=== PATIENT | male | born 1970 | race Hispanic/Latino ===

== ENCOUNTER 2017-06-18 05:31 | Emergency (ER) | payer MEDICAID ==
[2017-06-18 06:28] LABS: BASO % 0.2 % (0.0-2.0); EOS # 0.2 K/uL (0.0-0.7); EOS % 2.5 % (0.0-4.0); HEMOGLOBIN 15.2 g/dL (12.0-18.0); LYMPH # 3.5 K/uL (1.0-4.3); LYMPH % 45.2 % (20.0-40.0); MEAN CELL VOLUME 95.2 fl (80.0-94.0); MEAN CORPUSCULAR HEMOGLOBIN 32.6 pg (27.0-31.0); MEAN CORPUSCULAR HGB CONC 34.3 g/dL (33.0-37.0); MONO # 0.7 K/uL (0.0-0.8); MONO % 9.1 % (0.0-10.0); NEUT # 3.4 K/uL (1.8-7.0); RBC 4.65 Mil/uL (4.40-5.90); RED CELL DISTRIBUTION WIDTH 13.3 % (11.5-14.5); WHITE BLOOD COUNT 7.8 K/uL (4.8-10.8)
[2017-06-18 06:37] LABS: ALB/GLOB RATIO 1.5 (1.0-2.1); ALBUMIN 4.7 g/dL (3.5-5.0); ALT/SGPT 133 U/L (21-72); AST/SGOT 102 U/L (17-59); BLOOD UREA NITROGEN 14 mg/dl (9-20); CALCIUM 9.1 mg/dL (8.4-10.2); GFR AFRICAN-AMERICAN > 60; GFR NON-AFRICAN AMERICAN > 60
--- NOTE | 2017-06-18 06:47 | ED PDOC ---
HPI: Psych/Substance Abuse Time Seen by Provider: 06/18/17 05:47 Chief Complaint (Nursing): Psychiatric Evaluation Chief Complaint (Provider): Psychiatric Evaluation History Per: Patient History/Exam Limitations: no limitations Onset/Duration Of Symptoms: Days (x 2) Current Symptoms Are (Timing): Still Present Additional Complaint(s): Noah is a 46-year-old male who states having a past medical history of diabetes, anxiety, depression, and panic attacks, and he presents to the ED today for crisis evaluation. Patient reports that he was seen in [place] a few days ago and was supposed to be admitted but due to work conflicts had to sign out AMA. He states that 2 days ago, he attempted a Xanax overdose after having an argument with his girlfriend. Patient also has history of alcohol abuse, and states his last drink was last night. Contrary to his story, notes from [facility] state that patient was requesting to be admitted for detox. Left AMA because he was clinically sober and they would not admit him. PMD: None reported Past Medical History Reviewed: Historical Data, Nursing Documentation, Vital Signs Vital Signs: Last Vital Signs Temp 98.2 F 06/18/17 06:08 Pulse 98 H 06/18/17 06:08 Resp 16 06/18/17 06:08 BP 125/79 06/18/17 06:08 Pulse Ox 98 06/18/17 06:08 - Medical History PMH: Anxiety, Depression, Diabetes (Pt reported hx), HTN ("alcohol-induced") Denies: Hepatitis (Patient denied), HIV (Patient denied), Chronic Kidney Disease, Seizures (Patient denied), Sexually Transmitted Disease (Patient denied ) - Surgical History Other surgeries: Hernia repair - Family History Family History: States: Unknown Family Hx - Social History Alcohol: > 2 Drinks/Day - Immunization History Hx Tetanus Toxoid Vaccination: No Hx Influenza Vaccination: No Hx Pneumococcal Vaccination: No - Home Medications Home Medications: Ambulatory Orders Medication Instructions Recorded Unobtainable 06/15/17 - Allergies Allergies/Adverse Reactions: Allergies Allergy/AdvReac Type Severity Reaction Status Date / Time No Known Allergies Allergy Verified 06/15/17 06:10 Review of Systems ROS Statement: Except As Marked, All Systems Reviewed And Found Negative Cardiovascular: Positive for: Chest Pain, Other ("cramping") Psych: Positive for: Anxiety, Depression, Other (Stressed out) Physical Exam - Reviewed Nursing Documentation Reviewed: Yes Vital Signs Reviewed: Yes - Physical Exam Appears: Positive for: Non-toxic, No Acute Distress Head Exam: Positive for: ATRAUMATIC, NORMAL INSPECTION, NORMOCEPHALIC Skin: Positive for: Normal Color, Warm, Dry Eye Exam: Positive for: EOMI, Normal appearance, PERRL Neck: Positive for: Normal, Painless ROM, Supple Cardiovascular/Chest: Positive for: Regular Rate, Rhythm. Negative for: Murmur Respiratory: Positive for: Normal Breath Sounds. Negative for: Accessory Muscle Use, Respiratory Distress Gastrointestinal/Abdominal: Positive for: Normal Exam, Soft. Negative for: Tenderness Back: Positive for: Normal Inspection. Negative for: Vertebral Tenderness Extremity: Positive for: Normal ROM. Negative for: Pedal Edema, Calf Tenderness , Deformity Neurologic/Psych: Positive for: Alert, Oriented - Laboratory Results Result Diagrams: 06/18/17 06:25 06/18/17 06:25 - ECG O2 Sat by Pulse Oximetry: 98 (RA) Pulse Ox Interpretation: Normal Medical Decision Making Medical Decision Making: Time: 06:19 Initial Impression: Psych Evaluation Initial Plan: --Labs with urine drug screen, acetaminophen, salicylate --EKG --Patient placed on 1:1 observation Time: 07:00 --Patient is signed out by me to Dr. Freddie Montana, pending urine for medical clearance Scribe Attestation: Documented by Cris Lew, acting as a scribe for Courtney Molina MD Provider Scribe Attestation: All medical record entries made by the Scribe were at my direction and personally dictated by me. I have reviewed the chart and agree that the record accurately reflects my personal performance of the history, physical exam, medical decision making, and the department course for this patient. I have also personally directed, reviewed, and agree with the discharge instructions and disposition. Disposition - Clinical Impression Clinical Impression: Alcohol abuse - Patient ED Disposition Is Patient to be Admitted: Transfer of Care - Disposition Referrals: [facility] [Outside] - 06/19/17 [facility] [Outside] - 06/19/17 Disposition Time: 07:00 Condition: STABLE Additional Instructions: Return if not better in 3 days. Instructions: Abuse of Alcohol (ED) Patient Signed Over To: Freddie Montana
[2017-06-18 07:11] LABS: SALICYLATE < 1.0 mg/dl
[2017-06-18 07:39] LABS: ACETAMINOPHEN < 10.0 ug/ml (10.0-30.0)
--- NOTE | 2017-06-18 08:06 | ED PDOC ---
- Laboratory Results Result Diagrams: 06/18/17 06:25 06/18/17 06:25 Interpretation Of Abn Labs: 139 etoh - ECG O2 Sat by Pulse Oximetry: 98 (RA) - Progress ED Course And Treament: 700: Stable. Took over care from Dr. Molina, trish on crisis. 1036: Stable. AAOx3. Pain free. Tolerated po. Ambulated with no issues. Fu with pcp. Crisis saw pt. and does not meet criteria for admit per Dr. Pollard. Disposition Counseled Patient/Family Regarding: Studies Performed, Diagnosis, Need For Followup - Clinical Impression Clinical Impression: Alcohol abuse - POA Present On Arrival: None - Disposition Referrals: [facility] [Outside] - 06/19/17 [facility] [Outside] - 06/19/17 Disposition: Routine/Home Disposition Time: 10:37 Condition: STABLE Additional Instructions: Return if not better in 3 days. Instructions: Abuse of Alcohol (ED)
[2017-06-18 09:16] LABS: SQUAMOUS EPITHIAL 2 /hpf (0-5); URINE BACTERIA RARE (<OCC); URINE BILIRUBIN NEGATIVE (NEGATIVE); URINE BLOOD NEGATIVE (NEGATIVE); URINE CLARITY CLOUDY (Clear); URINE COLOR YELLOW (YELLOW); URINE GLUCOSE (UA) NEG (Normal); URINE LEUKOCYTE ESTERASE NEG Leu/uL (Negative); URINE NITRATE NEGATIVE (NEGATIVE); URINE PROTEIN NEGATIVE (NEGATIVE); URINE UROBILINOGEN 0.2-1.0 mg/dL (0.2-1.0)
[2017-06-18 10:05] LABS: BARBITURATES, UR NEGATIVE (NEGATIVE); BENZODIAZEPINES, UR NEGATIVE (NEGATIVE); OPIATES, UR NEGATIVE (NEGATIVE); PHENCYCLIDINE, UR NEGATIVE (NEGATIVE)
--- NOTE | 2017-06-18 10:35 | CARD ---
APPROVED REPORT EKG Measurement Heart [id number] <Conclusion> Normal sinus rhythm Normal ECG
[2017-06-18 11:22] VITALS: BP 122/69; PULSE 80; RESP 18; TEMP 98.1
[2017-06-19 06:40] VITALS: O2SAT 98
== END 2017-06-18 12:24 | disposition home or self-care (01) ==
LOC: H.ER 05:31
DX: F10.129 Alcohol abuse with intoxication, unspecified (principal); E11.9 Type 2 diabetes mellitus without complications; F32.9 Major depressive disorder, single episode, unspecified; F41.9 Anxiety disorder, unspecified; I10 Essential (primary) hypertension; T42.4X1A Poisoning by benzodiazepines, accidental (unintentional), initial encounter

== ENCOUNTER 2017-12-26 06:01 | Inpatient (IN) | payer MEDICAID ==
--- NOTE | 2017-12-26 07:29 | ED PDOC ---
HPI: Psych/Substance Abuse Time Seen by Provider: 12/26/17 07:07 Chief Complaint (Nursing): Anxiety Chief Complaint (Provider): Anxiety History Per: Patient History/Exam Limitations: no limitations Onset/Duration Of Symptoms: Hrs (today) Current Symptoms Are (Timing): Still Present Suicide/Self Injury Attempted (Context): None Associated Symptoms: Anxiety, Depression, Suicidal Thoughts. denies: Suicidal Plan Involuntary Hold By: None Additional Complaint(s): Noah Levi is a 47 year old male, with a past medical history of anxiety, who presents to the emergency department complaining of anxiety and depression with suicidal thoughts but no specific plan onset since today. Patient also reports palpitations. Patient states he recently lost his job. He denies any fever, chills or other medical complaints. PMD: None provided. Past Medical History Reviewed: Historical Data, Nursing Documentation, Vital Signs Vital Signs: Last Vital Signs Temp 98.1 F 12/26/17 06:29 Pulse 102 H 12/26/17 06:29 Resp 16 12/26/17 06:29 BP 147/88 12/26/17 06:29 Pulse Ox 98 12/26/17 06:29 - Medical History PMH: Anxiety, Bipolar Disorder, Depression, Diabetes (Pt reported hx), HTN ( "alcohol-induced") Denies: Hepatitis (Patient denied), HIV (Patient denied), Chronic Kidney Disease, Seizures (Patient denied), Sexually Transmitted Disease (Patient denied ) - Surgical History Surgical History: No Surg Hx - Family History Family History: States: Unknown Family Hx - Social History Current smoker - smoking cessation education provided: Yes (light smoker <10 cigarettes daily) Alcohol: > 2 Drinks/Day Drugs: Denies - Immunization History Hx Tetanus Toxoid Vaccination: No Hx Influenza Vaccination: No Hx Pneumococcal Vaccination: No - Home Medications Home Medications: Ambulatory Orders Medication Instructions Recorded Unobtainable 06/15/17 Folic Acid 1 mg PO DAILY #14 tab 07/03/17 Multivitamin Therapeutic Tab 1 tab PO 0800 #14 tab 07/03/17 [Thera Tab] Thiamine [Vitamin B1 Tab] 100 mg PO DAILY #14 tab 07/03/17 Escitalopram [Lexapro] 10 mg PO DAILY #30 tab 08/08/17 Gabapentin [Neurontin] 300 mg PO BID #60 cap 08/08/17 - Allergies Allergies/Adverse Reactions: Allergies Allergy/AdvReac Type Severity Reaction Status Date / Time No Known Allergies Allergy Verified 06/15/17 06:10 Review of Systems ROS Statement: Except As Marked, All Systems Reviewed And Found Negative Constitutional: Negative for: Fever, Chills Psych: Positive for: Anxiety, Depression, Suicidal ideation (no specific plan. ) Physical Exam - Reviewed Nursing Documentation Reviewed: Yes Vital Signs Reviewed: Yes - Physical Exam Appears: Positive for: Well, Non-toxic, No Acute Distress Head Exam: Positive for: ATRAUMATIC, NORMAL INSPECTION, NORMOCEPHALIC Skin: Positive for: Warm, Dry, Rash (erythematous rash on neck and chest. ) Eye Exam: Positive for: Normal appearance, EOMI, PERRL Neck: Positive for: Painless ROM, Supple Cardiovascular/Chest: Positive for: Regular Rate, Rhythm. Negative for: Murmur Respiratory: Positive for: Normal Breath Sounds (clear b/l). Negative for: Respiratory Distress Gastrointestinal/Abdominal: Positive for: Normal Exam, Soft. Negative for: Tenderness, Guarding, Rebound Back: Positive for: Normal Inspection. Negative for: L CVA Tenderness, R CVA Tenderness, Vertebral Tenderness Extremity: Positive for: Normal ROM. Negative for: Tenderness, Pedal Edema, Deformity, Swelling Neurologic/Psych: Positive for: Alert, Oriented, Mood/Affect (flat). Negative for: Motor/Sensory Deficits - Laboratory Results Result Diagrams: 12/26/17 07:45 12/26/17 07:45 - ECG O2 Sat by Pulse Oximetry: 98 (RA) Pulse Ox Interpretation: Normal Medical Decision Making Medical Decision Making: Initial Impression: Psychiatric evaluation Initial Plan: --EKG --Alcohol serum --CMP --Drug screen --Troponin I --Urine dipstick --CBC w/ differential --Chest portable [RAD] --1:1 Obs for suicide precaution. --Reevaluation Merdically stable for psychiatric admission Scribe Attestation: Documented by Vito Dunbar, acting as a scribe for Vito Sow MD Provider Scribe Attestation: All medical record entries made by the Scribe were at my direction and personally dictated by me. I have reviewed the chart and agree that the record accurately reflects my personal performance of the history, physical exam, medical decision making, and the department course for this patient. I have also personally directed, reviewed, and agree with the discharge instructions and disposition. Disposition - Clinical Impression Clinical Impression: Anxiety - Patient ED Disposition Is Patient to be Admitted: Yes - Disposition Disposition Time: 09:48 Condition: FAIR Forms: [employer] (Albanian) - Pt Status Changed To: Hospital Disposition Of: Inpatient - Admit Certification Admit to Inpatient:: After my assessment, the patient will require hospitalization for at least two midnights. This is because of the severity of symptoms shown, intensity of services needed, and/or the medical risk in this patient being treated as an outpatient. - POA Present On Arrival: None
[2017-12-26 07:55] LABS: BASO # 0.1 K/uL (0.0-0.2); BASO % 1.1 % (0.0-2.0); EOS # 0.1 K/uL (0.0-0.7); EOS % 0.7 % (0.0-4.0); HEMOGLOBIN 13.7 g/dL (12.0-18.0); LYMPH # 2.8 K/uL (1.0-4.3); LYMPH % 30.6 % (20.0-40.0); MEAN CELL VOLUME 89.9 fl (80.0-94.0); MEAN CORPUSCULAR HGB CONC 35.6 g/dL (33.0-37.0); MEAN PLATELET VOLUME 7.3 fl (7.2-11.7); MONO # 0.6 K/uL (0.0-0.8); MONO % 6.7 % (0.0-10.0); NEUT # 5.5 K/uL (1.8-7.0); NEUT % 60.9 % (50.0-75.0); RBC 4.27 Mil/uL (4.40-5.90); WHITE BLOOD COUNT 9.1 K/uL (4.8-10.8)
[2017-12-26 08:10] LABS: ALB/GLOB RATIO 1.4 (1.0-2.1); ALBUMIN 4.2 g/dL (3.5-5.0); ALT/SGPT 56 U/L (21-72); AST/SGOT 64 U/L (17-59); BLOOD UREA NITROGEN 10 mg/dl (9-20); CALCIUM 8.5 mg/dL (8.4-10.2); GFR AFRICAN-AMERICAN > 60; GFR NON-AFRICAN AMERICAN > 60
--- NOTE | 2017-12-26 09:34 | RAD ---
HISTORY: cough COMPARISON: Chest radiograph dated 08/18/2016 FINDINGS: LUNGS: No active pulmonary disease. PLEURA: No significant pleural effusion identified, no pneumothorax apparent. CARDIOVASCULAR: Normal. OSSEOUS STRUCTURES: Unchanged. VISUALIZED UPPER ABDOMEN: Normal. OTHER FINDINGS: None. IMPRESSION: No active disease.
[2017-12-26] MEDS ORDERED: Alum-Mag Hydrox-Simethicone Susp (30 mL) PO PRN (10:08)
[2017-12-26] MEDS ORDERED: DiphenhydrAMINE 50 mg/ml Inj IM PRN (10:08)
[2017-12-26] MEDS ORDERED: Magnesium Hydroxide Susp 30 ml UD PO PRN (10:08)
[2017-12-26 11:38] LABS: BARBITURATES, UR NEGATIVE (NEGATIVE); BENZODIAZEPINES, UR NEGATIVE (NEGATIVE); OPIATES, UR NEGATIVE (NEGATIVE); PHENCYCLIDINE, UR NEGATIVE (NEGATIVE)
[2017-12-26 12:10] VITALS: O2SAT 92
[2017-12-26 13:03] LABS: T4 5.36 ug/dl (5.5-11.0)
--- NOTE | 2017-12-26 13:13 | PCM.PSYCH ---
Initial Psychiatric Evaluation - Initial Psychiatric Evaluation Type of Admission: Voluntary Legal Status: Capacity Chief Complaint (in patient's own words): "I've been depressed and anxious." Patient's Reaction to Hospitalization: HPI: 46 y/o M with PMH of DM type 2 and alcohol abuse presents to the hospital for suicidal ideation and depression. Patient reports stress and anxiety in the context of being unemployed and homeless. He denies current ideation to harm self or others and can contract for safety. He reports that he has been drinking excessively (1.5 pints of vodka a day) and reports that he currently feels tremulous. He denies h/o alcohol withdrawal seizures. +Anxiety. + Panic attacks +feelings of helplessness/hopelessness PPHx: H/o of multiple past admissions for Etoh abuse and depression, last treated w/ Lexapro, but non-compliant with treatment PMH: DM2 (improved since weight loss), alcohol abuse FMH: Arthritis Social Hx: 1.5 pints of vodka daily, smoke 5 cig a day (declined nicotine patch) , denies illicit drug use; homeless and unemployed Medication: None Allergies: NKDA Current Medications: Active Medications Generic Name Dose Route Start Last Admin Trade Name Freq PRN Reason Stop Dose Admin Acetaminophen 650 mg 12/26/17 10:08 Tylenol 325mg Tab PO Q4 PRN Pain, moderate (4-7) Al Hydrox/Mg Hydrox/Simethicone 30 ml 12/26/17 10:08 Maalox Plus 30 Ml PO Q4 PRN Dyspepsia Diphenhydramine HCl 50 mg 12/26/17 10:08 Benadryl IM Q6 PRN Extrapyramidal S/S Unable PO Diphenhydramine HCl 50 mg 12/26/17 10:08 Benadryl PO Q6 PRN Extrapyramidal Symptoms Haloperidol 5 mg 12/26/17 10:08 Haldol PO Q4 PRN Agitation Haloperidol Lactate 5 mg 12/26/17 10:08 Haldol IM Q4 PRN Agitation, Unable to Take PO Lorazepam 2 mg 12/26/17 10:08 Ativan IM Q4 PRN Anxiety/Agitation,Unable PO Lorazepam 2 mg 12/26/17 10:08 Ativan PO Q4 PRN Anxiety/Agitation Magnesium Hydroxide 30 ml 12/26/17 10:08 Milk Of Magnesia PO HS PRN Constipation Past Psychiatric History - Past Psychiatric History Previous Treatment History: Inpatient Pertinent Medical Hx (Current Medical&Sleep Prob, Allergies): Allergies Allergy/AdvReac Type Severity Reaction Status Date / Time No Known Allergies Allergy Verified 06/15/17 06:10 No Known Home Med 12/26/17 Review of Systems - Psychiatric Psychiatric: As Per HPI, Abnormal Sleep Pattern, Anxiety, Change in Appetite, Depression, Difficulty Concentrating, Hopelessness, Mood Swings, Panic Attacks, Suicidal Ideation Mental Status Examination - Personal Presentation Personal Presentation: Looks stated age - Affect Affect: Constricted, Depressed - Motor Activity Motor Activity: Calm - Reliability in Providing Information Reliability in Providing Information: Good - Speech Speech: Organized - Mood Mood: Depressed, Anxious - Formal Thought Process Formal Thought Process: No Impairment - Hallucinations/Delusions Additional comments: NO AH/VH/paranoia/delusions - Obsessions/Compulsions Obsessions: No Compulsions: No - Cognitive Functions Orientation: Person, Place, Situation, Time Sensorium: Alert Attention/Concentration: Attentive Judgement: Intact, as evidence by: Insight regarding need for hospitalization Memory: Recent intact, as evidence by: Ability to recall events of the day, Remote intact, as evidenced by: Abilit to recall sig. life events, Remote intact , as evidenced by: Ability to recall historical events - Risk Risk: Suicidal - Strength & Assets Inventory Strength & Assets Inventory: Cooperative - Limitations Limitations: Other (Homelessness/Poverty) DSM 5 DX - DSM 5 DSM 5 Diagnosis: Depressive Disorder; Alcohol Use Disorder; Anxiety Disorder - Recommended/Plan of Treatment Treatment Recommendations and Plan of Treatment: Depressive Disorder; Alcohol Use Disorder; Anxiety Disorder -Admit to psychiatry -Start Lexapro 10 mg PO Daily -Librium for ETOH w/drawal -Individual and group therapy -Medicine consult -Disposition planning Projected ELOS: 5-7 days Discharge Plan and Discharge Criteria: Discharge patient when he is psychiatrically stable - Smoking Cessation Smoking Cessation Initiated: No Reason for not providing: Patient declined
[2017-12-26 14:00] VITALS: BMI 36.6
--- NOTE | 2017-12-26 15:17 | PCM.BM ---
<AnamikagavinSophie - Last Filed: 12/26/17 15:15> Treatment Plan Problems - Problems identified on initial assessmt hOPELESSNESSNESS/HELPLESSNESS Date Initiated: 12/26/17 Time Initiated: 15:17 Assessment reference: HP NA Treatment assets and liabiliti Patient Assests: adapts well, cooperative, motivated, self-reliant, ADL independent, negotiates basic needs, cognitively intact Patient Liabilities: financial problems, poor support system, substance abuse - Milieu Protocol Maintain good personal hygiene: daily Encourage regular showers, daily Remind patient to perform daily oral care, daily Assist patient to perform ADL's Conduct patient checks and document Observation sheet: Q15 minutes Maintain personal safety: every shift Educate patient to report safety concerns to staff, every shift Monitor environment for contraband/sharps Medication safety: Monitor for expected outcome, potential side effects: every shift, Assess barriers to learning: every shift, Assess readiness for medication education: every shift Milieu Narrative: Depressive Disorder; Alcohol Use Disorder; Anxiety Disorder -Admit to psychiatry -Start Lexapro 10 mg PO Daily -Librium for ETOH w/drawal -Individual and group therapy -Medicine consult -Disposition planning Discharge/Continuing Care - Treatment Team Participation Patient/Family/SO Statement: Depressive Disorder; Alcohol Use Disorder; Anxiety Disorder -Admit to psychiatry -Start Lexapro 10 mg PO Daily -Librium for ETOH w/drawal -Individual and group therapy -Medicine consult -Disposition planning <Elvi Harrell - Last Filed: 12/27/17 09:00> - Diagnosis (1) Major depressive disorder Status: Acute Interventions: Medication management, Individual and group therapy, Psychoeducation 12/27/17 09:00 (2) Anxiety Status: Acute Interventions: Medication management, Individual and group therapy, Psychoeducation 12/27/17 09:00 (3) Alcohol abuse Status: Acute Interventions: Medication management, Individual and group therapy, Psychoeducation 12/27/17 09:00 <Alexandra Fernández - Last Filed: 12/27/17 15:41> Family Contact Family involvement: Famliy/SO not involved Family contact: Patient declines to allow family contact at present - Goals for Treatment Patient goals for treatment: "for the panic attacks and these crazy thoughts to go away" Discharge/Continuing Care - Education Needs Education Needs: Patient Medication, Patient Diagnosis/Disease Process, Patient Coping Skills, Patient Placement options, Patient Community resources, Patient Activities of Daily Living, Patient Nutrition, Patient Health Practices/Safety, Patient Personal Hygiene/Grooming, Patient Aftercare Safety Plan - Discharge Discharge Criteria: Tolerates medication w/o severe side effects, Free of Suicidal thoughts, Free of agitation, Normal sleep pattern, Ability to care for self, Reduction of target symptoms Discharge to:: Halfway - Additional Comments 12/27/17 15:36 Pt seen and discussed in team meeting. Reason for admission reviewed and discussed at length. Pt reported he was self-referred due to "I had panic attacks, like out of control." Pt reported hx of feeling anxious and experiencing panic attacks, but not as frequent as recently. 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 Pt reported he is currently homeless. Pt reported experiencing panic attacks " every 2 days but now is back to back." Pt reported each attack lasts approximately 20 minutes. Pt reported he has been self medicating with 1.5 pint of Vodka. Pt reported he is not linked to psychiatric and/or mental health services in the community. Pt reported he was previously staying at [facility] but left because of his panic attacks. Pt's social and medical issues reviewed. Pt's medications reviewed. Tx vielka reviewed and discussed. SW to continue to follow case. - Treatment Team Participation Discussed with Family/SO: No Was Patient/Family/SO present at Treatment Team Meeting: Yes
[2017-12-26] MEDS: Multivitamin With Minerals Tab PO SCH (16:38)
--- NOTE | 2017-12-26 18:58 | CARD ---
APPROVED REPORT EKG Measurement Heart [id number] <Conclusion> Normal sinus rhythm Normal ECG
[2017-12-27] MEDS: Multivitamin With Minerals Tab PO SCH (08:52)
--- NOTE | 2017-12-27 12:17 | PCM.PYCHPN ---
Psychiatric Progress Note - Psychiatric Progress Note Patient seen today, length of contact: Patient evaluated, case discussed with team, chart reviewed Patient Chief Complaint: "I've been depressed and anxious." Problems Identified/Issues Discussed: Patient reports that he continues to feel depressed and anxious, but he seems more goal oriented. He is concerned that he will have suicidal thoughts in the future, but he denies current SI/HI. NO DENNIS/VH/psychotic symptoms. Patient was encouraged to participate in groups. Improving appetite and sleep. No current signs/ symptoms of ETOH withdrawal. Medication Change: Yes (Taper Librium) Medical Record Reviewed: Yes Consults ordered or reviewed: Medicine consult Mental Status Examination - Cognitive Function Orientation: Person, Place, Situation, Time Memory: Intact Attention: WNL Concentration: WNL Association: WNL Fund of Knowledge: WNL - Mood Mood: Depressed, Anxious - Affect Affect: Constricted, Depressed - Speech Speech: Appropriate - Formal Thought Process Formal Thought Process: No Impairment Psychotic Thoughts and Behaviors: No AH/VH/paranoia/delusions - Suicidal Ideation Suicidal Ideation: No - Homicidal Ideation Homicidal Ideation: No Goal/Treatment Plan - Goal/Treatment Plan Need for Continued Stay: Remain at risks for inpatient hospitalization, Severe depression anxiety Progress Toward Problem(s) and Goals/Treatment Plan: Depressive Disorder; Alcohol Use Disorder; Anxiety Disorder -Continue Lexapro 10 mg PO Daily -Taper Librium for ETOH w/drawal -Individual and group therapy -Medicine consult -Disposition planning Estimated Date of D/C: 12/31/17 - Smoking Cessation Smoking Cessation Initiated: No Reason for not providing: Patient declined
--- NOTE | 2017-12-27 14:46 | CP.PCM.CON ---
<Jhoan Santacruz - Last Filed: 12/27/17 16:25> History of Present Illness - History of Present Illness History of Present Illness: Hospitalist Consult Note- Dr. Herrera 47 y.o male seen in psychiatry unit admitted for anxiety, depression, and suicidal ideation. Patient reports that he is suffering from panic attacks and that his panic attacks caused him to lose his job 3 days ago as well as a place [place]. The situation made him depress and he reported having suicidal thoughts which prompted him to go to the ED to seek help. Patient reports heart palpations. He reports he has been drinking 1.5 pints of vodka daily. Today, patient reports 1 day headache. Improves slightly with Tylenol and rest. Patient denies recent trauma or falls. Patient denies nausea, vomiting , shortness of breath, chest pain, chills or fever. Patient denies calf pain. PMH: alcohol abuse, anxiety, depression, panic attacks; patient reports being diagnosed with DM in the past; reports DM improved when dropped over 100lbs SH: smokes 1/2 ppd ~4 years, drinks 1-1/2 pink volka daily for 15 years, denies illicit drug use FH: arthritis PSH: abdominal hernia repair ALL: NKDA MEDS: see MAR list Past Patient History - Infectious Disease Hx of Infectious Diseases: None - Past Medical History & Family History Past Medical History?: Yes - Past Social History Alcohol: > 2 Drinks/Day Drugs: Denies - CARDIAC Hx Cardiac Disorders: No - PULMONARY Hx Respiratory Disorders: No Hx Tuberculosis: No - NEUROLOGICAL Hx Neurological Disorder: No HX Cerebrovascular Accident: No Hx Seizures: No (Patient denied) - HEENT Hx HEENT Problems: No - RENAL Hx Chronic Kidney Disease: No - ENDOCRINE/METABOLIC Hx Endocrine Disorders: No - HEMATOLOGICAL/ONCOLOGICAL Hx Blood Disorders: No Hx Cancer: No Hx Human Immunodeficiency Virus (HIV): No (Patient denied) - INTEGUMENTARY Hx Dermatological Problems: No - MUSCULOSKELETAL/RHEUMATOLOGICAL Hx Musculoskeletal Disorders: No - GASTROINTESTINAL Hx Gastrointestinal Disorders: No - GENITOURINARY/GYNECOLOGICAL Hx Genitourinary Disorders: No Hx Sexually Transmitted Disorders: No (Patient denied) - PSYCHIATRIC Hx Anxiety: Yes ([facility]) Hx Depression: Yes ([facility]) Hx Substance Use: No - SURGICAL HISTORY Hx Surgeries: Yes Hx Herniorrhaphy: Yes (abdominal 2007) - ANESTHESIA Hx Anesthesia: Yes Hx Anesthesia Reactions: No Hx Malignant Hyperthermia: No Meds Allergies/Adverse Reactions: Allergies Allergy/AdvReac Type Severity Reaction Status Date / Time No Known Allergies Allergy Verified 06/15/17 06:10 - Medications Medications: Current Medications Acetaminophen (Tylenol 325mg Tab) 650 mg PO Q4 PRN PRN Reason: Pain, moderate (4-7) Last Admin: 12/27/17 08:47 Dose: 650 mg Al Hydrox/Mg Hydrox/Simethicone (Maalox Plus 30 Ml) 30 ml PO Q4 PRN PRN Reason: Dyspepsia Chlordiazepoxide (Librium) 25 mg PO Q12 [facility] Diphenhydramine HCl (Benadryl) 50 mg IM Q6 PRN PRN Reason: Extrapyramidal S/S Unable PO Diphenhydramine HCl (Benadryl) 50 mg PO Q6 PRN PRN Reason: Extrapyramidal Symptoms Escitalopram Oxalate (Lexapro) 10 mg PO DAILY [facility] Last Admin: 12/27/17 08:51 Dose: 10 mg Folic Acid (Folic Acid) 1 mg PO DAILY [facility] Last Admin: 12/27/17 08:51 Dose: 1 mg Haloperidol (Haldol) 5 mg PO Q4 PRN PRN Reason: Agitation Haloperidol Lactate (Haldol) 5 mg IM Q4 PRN PRN Reason: Agitation, Unable to Take PO Lorazepam (Ativan) 2 mg IM Q4 PRN PRN Reason: Anxiety/Agitation,Unable PO Lorazepam (Ativan) 2 mg PO Q4 PRN PRN Reason: Anxiety/Agitation Magnesium Hydroxide (Milk Of Magnesia) 30 ml PO HS PRN PRN Reason: Constipation Multivitamins/Minerals (Therapeutic-M Tab) 1 tab PO DAILY [facility] Last Admin: 12/27/17 08:52 Dose: 1 tab Thiamine HCl (Vitamin B1 Tab) 100 mg PO DAILY [facility] Last Admin: 12/27/17 08:52 Dose: 100 mg Trazodone HCl (Desyrel) 50 mg PO HS PRN PRN Reason: Insomnia Physical Exam - Constitutional Appears: Well, Non-toxic, No Acute Distress - Head Exam Head Exam: ATRAUMATIC, NORMOCEPHALIC - Eye Exam Eye Exam: EOMI, Normal appearance, PERRL Pupil Exam: NORMAL ACCOMODATION, PERRL - ENT Exam ENT Exam: Mucous Membranes Moist, Normal Exam - Neck Exam Neck exam: Positive for: Full Rom, Normal Inspection - Respiratory Exam Respiratory Exam: Clear to Auscultation Bilateral, NORMAL BREATHING PATTERN. absent: Prolonged Expiratory Phase, Rales, Rhonchi, Wheezes, Respiratory Distress, Stridor - Cardiovascular Exam Cardiovascular Exam: REGULAR RHYTHM, +S1, +S2 - GI/Abdominal Exam GI & Abdominal Exam: Normal Bowel Sounds, Soft - Extremities Exam Extremities exam: Positive for: normal capillary refill. Negative for: calf tenderness, pedal edema, tenderness Additional comments: Hand tremors - Neurological Exam Neurological exam: Alert, Oriented x3 - Psychiatric Exam Psychiatric exam: Depressed, Normal Affect - Skin Skin Exam: Dry, Intact, Normal Color, Warm Results - Vital Signs Recent Vital Signs: Last Vital Signs Temp 97.9 F 12/27/17 06:05 Pulse 67 12/27/17 06:05 Resp 19 12/27/17 06:05 BP 139/87 12/27/17 06:05 Pulse Ox 92 L 12/26/17 14:30 - Labs Result Diagrams: 12/26/17 07:45 12/26/17 07:45 Labs: Laboratory Results - last 24 hr 12/26/17 12/26/17 12/26/17 10:45 10:45 15:49 POC Glucose (mg/dL) 105 Hemoglobin A1c 5.6 RPR Nonreactive Assessment & Plan - Assessment and Plan (Free Text) Assessment: 47 y.o male with PMH of DM, alcohol abuse, anxiety and depression admitted for anxiety, depression, and suicidal ideation. Plan: 1. Anxiety, depression, suicidal ideation -management per psychiatry 2. Headache -no recent trauma/fall -encourage fluid intake -Tylenol PRN 3. Heart palpitations -likely secondary to anxiety, panic attacks -EKG normal -Chest X-ray shows no active disease 4. DM 2 -Hba1c= 5.6 -well controlled 5. Mild Hypokalemia -Potassium=3.5 -encouraged increase PO intake (bananas) <Gloria Herrera - Last Filed: 12/28/17 14:45> Meds - Medications Medications: Current Medications Acetaminophen (Tylenol 325mg Tab) 650 mg PO Q4 PRN PRN Reason: Pain, moderate (4-7) Last Admin: 12/27/17 08:47 Dose: 650 mg Al Hydrox/Mg Hydrox/Simethicone (Maalox Plus 30 Ml) 30 ml PO Q4 PRN PRN Reason: Dyspepsia Chlordiazepoxide (Librium) 25 mg PO Q12 [facility] Stop: 12/29/17 10:00 Last Admin: 12/28/17 09:41 Dose: 25 mg Diphenhydramine HCl (Benadryl) 50 mg IM Q6 PRN PRN Reason: Extrapyramidal S/S Unable PO Diphenhydramine HCl (Benadryl) 50 mg PO Q6 PRN PRN Reason: Extrapyramidal Symptoms Escitalopram Oxalate (Lexapro) 10 mg PO DAILY [facility] Last Admin: 12/28/17 09:41 Dose: 10 mg Folic Acid (Folic Acid) 1 mg PO DAILY [facility] Last Admin: 12/28/17 09:42 Dose: 1 mg Haloperidol (Haldol) 5 mg PO Q4 PRN PRN Reason: Agitation Haloperidol Lactate (Haldol) 5 mg IM Q4 PRN PRN Reason: Agitation, Unable to Take PO Lorazepam (Ativan) 2 mg IM Q4 PRN PRN Reason: Anxiety/Agitation,Unable PO Lorazepam (Ativan) 2 mg PO Q4 PRN PRN Reason: Anxiety/Agitation Magnesium Hydroxide (Milk Of Magnesia) 30 ml PO HS PRN PRN Reason: Constipation Multivitamins/Minerals (Therapeutic-M Tab) 1 tab PO DAILY [facility] Last Admin: 12/28/17 09:41 Dose: 1 tab Thiamine HCl (Vitamin B1 Tab) 100 mg PO DAILY [facility] Last Admin: 12/28/17 09:41 Dose: 100 mg Trazodone HCl (Desyrel) 50 mg PO HS PRN PRN Reason: Insomnia Last Admin: 12/27/17 22:02 Dose: 50 mg Results - Vital Signs Recent Vital Signs: Last Vital Signs Temp 98.1 F 12/28/17 06:00 Pulse 64 12/28/17 06:00 Resp 18 12/28/17 06:00 BP 121/67 12/28/17 06:00 Pulse Ox 92 L 12/26/17 14:30 - Labs Result Diagrams: 12/26/17 07:45 12/26/17 07:45 Attending/Attestation - Attestation I have personally seen and examined this patient.: Yes I have fully participated in the care of the patient.: Yes I have reviewed all pertinent clinical information: Yes Notes (Text): 12/28/17 14:45 Seen examined and discussed with resident. Agree with findings and plan as above.
--- NOTE | 2017-12-28 09:32 | PCM.PYCHPN ---
Psychiatric Progress Note - Psychiatric Progress Note Patient seen today, length of contact: Patient evaluated, case discussed with team, chart reviewed Patient Chief Complaint: "I'm depressed." Problems Identified/Issues Discussed: Patient reports that he continues to feel depressed and anxious, but that his mood is starting to improve. He reports improved sleep. He denies current suicidal ideation/plan/intent. He is more goal oriented. NO AH/VH/SI/HI. Patient was encouraged to participate in groups. No current signs/ symptoms of ETOH withdrawal. Medication Change: Yes (Taper Librium) Medical Record Reviewed: Yes Consults ordered or reviewed: Medicine consult Mental Status Examination - Cognitive Function Orientation: Person, Place, Situation, Time Memory: Intact Attention: WNL Concentration: WNL Association: WNL Fund of Knowledge: [facility] Decription of patient's judgement and insights: Fair I/J - Mood Mood: Depressed - Affect Affect: Constricted - Speech Speech: Appropriate - Formal Thought Process Formal Thought Process: No Impairment Psychotic Thoughts and Behaviors: No AH/VH/paranoia/delusions - Suicidal Ideation Suicidal Ideation: No - Homicidal Ideation Homicidal Ideation: No Goal/Treatment Plan - Goal/Treatment Plan Need for Continued Stay: Remain at risks for inpatient hospitalization, Severe depression anxiety Progress Toward Problem(s) and Goals/Treatment Plan: Depressive Disorder; Alcohol Use Disorder; Anxiety Disorder -Continue Lexapro 10 mg PO Daily -Taper Librium for ETOH w/drawal -Individual and group therapy -Medicine consult -Disposition planning Estimated Date of D/C: 12/31/17
[2017-12-28] MEDS: Multivitamin With Minerals Tab PO SCH (09:41)
[2017-12-29] MEDS: Multivitamin With Minerals Tab PO SCH (08:45)
--- NOTE | 2017-12-29 10:12 | PCM.PYCHPN ---
Psychiatric Progress Note - Psychiatric Progress Note Patient seen today, length of contact: Patient evaluated, case discussed with team, chart reviewed Patient Chief Complaint: "I'm depressed." Problems Identified/Issues Discussed: Patient reports that he continues to feel depressed, but his mood is improving and he is more goal oriented. He reports improved sleep. He denies current suicidal ideation/plan/intent. NO AH/VH/SI/HI. Patient was encouraged to participate in groups. No current signs/ symptoms of ETOH withdrawal. Medication Change: Yes (Stop Librium) Medical Record Reviewed: Yes Consults ordered or reviewed: Medicine consult Mental Status Examination - Cognitive Function Orientation: Person, Place, Situation, Time Memory: Intact Attention: WNL Concentration: WNL Association: [facility] Fund of Knowledge: [facility] Decription of patient's judgement and insights: Fair I/J - Mood Mood: Depressed - Affect Affect: Constricted - Speech Speech: Appropriate - Formal Thought Process Formal Thought Process: No Impairment Psychotic Thoughts and Behaviors: No AH/VH/paranoia/delusions - Suicidal Ideation Suicidal Ideation: No - Homicidal Ideation Homicidal Ideation: No Goal/Treatment Plan - Goal/Treatment Plan Need for Continued Stay: Remain at risks for inpatient hospitalization, Severe depression anxiety Progress Toward Problem(s) and Goals/Treatment Plan: Depressive Disorder; Alcohol Use Disorder; Anxiety Disorder -Continue Lexapro 10 mg PO Daily -Stop Librium; no current signs/symptoms of ETOH withdrawal -Individual and group therapy -Medicine consult -Disposition planning Estimated Date of D/C: 12/31/17
[2017-12-30] MEDS: Multivitamin With Minerals Tab PO SCH (09:15)
--- NOTE | 2017-12-30 11:55 | PCM.PYCHPN ---
Psychiatric Progress Note - Psychiatric Progress Note Patient seen today, length of contact: Patient evaluated, case discussed with team, chart reviewed Patient Chief Complaint: "I'm depressed." Problems Identified/Issues Discussed: Patient reports that his mood is improving. He is more goal oriented. No SI/HI /AH/VH. He has been participating more in groups and is appropriate w/ staff and peers. Medication Change: No Medical Record Reviewed: Yes Consults ordered or reviewed: Medicine consult Mental Status Examination - Cognitive Function Orientation: Person, Place, Situation, Time Memory: Intact Attention: WNL Concentration: WNL Association: WN Fund of Knowledge: [facility] Decription of patient's judgement and insights: Fair I/J - Mood Mood: Depressed - Affect Affect: Broad - Speech Speech: Appropriate - Formal Thought Process Formal Thought Process: No Impairment Psychotic Thoughts and Behaviors: No AH/VH/paranoia/delusions - Suicidal Ideation Suicidal Ideation: No - Homicidal Ideation Homicidal Ideation: No Goal/Treatment Plan - Goal/Treatment Plan Need for Continued Stay: Remain at risks for inpatient hospitalization, Severe depression anxiety Progress Toward Problem(s) and Goals/Treatment Plan: Depressive Disorder; Alcohol Use Disorder; Anxiety Disorder -Continue Lexapro 10 mg PO Daily -No current signs/symptoms of ETOH withdrawal -Individual and group therapy -Medicine consult -Disposition planning- likely discharge tomorrow if patient continues to improve clinically Estimated Date of D/C: 12/31/17
[2017-12-31 06:09] VITALS: BP 99/52; PULSE 63; RESP 19; TEMP 98.2
--- NOTE | 2017-12-31 08:48 | PCM.PYCHDC ---
Mental Status Examination - Mental Status Examination Orientation: Person, Place, Situation, Time Memory: Intact Mood: Neutral Affect: Broad Speech: Appropriate Attention: WNL Concentration: WNL Association: WNL Fund of Knowledge: WNL Formal Thought Process: No Impairment Description of patient's judgement and insight: Fair I/J Psychotic Thoughts and Behaviors: No AH/VH/paranoia/delusions Suicidal Ideation: No Current Homicidal Ideation?: No Discharge Summary - Discharge Note Reason for Hospitalization: HPI: 46 y/o M with PMH of DM type 2 and alcohol abuse presents to the hospital for suicidal ideation and depression. Patient reports stress and anxiety in the context of being unemployed and homeless. He denies current ideation to harm self or others and can contract for safety. He reports that he has been drinking excessively (1.5 pints of vodka a day) and reports that he currently feels tremulous. He denies h/o alcohol withdrawal seizures. +Anxiety. + Panic attacks +feelings of helplessness/hopelessness PPHx: H/o of multiple past admissions for Etoh abuse and depression, last treated w/ Lexapro, but non-compliant with treatment PMH: DM2 (improved since weight loss), alcohol abuse FMH: Arthritis Social Hx: 1.5 pints of vodka daily, smoke 5 cig a day (declined nicotine patch) , denies illicit drug use; homeless and unemployed Medication: None Allergies: NKDA Consultations:: List each consultation separately and include: 1. Reason for request. 2. Findings. 3. Follow-up Consultations: Medicine consult Summary of Hospital Course include:: 1. Description of specific treatment plan utilized for patients during their course of treatmen. 2. Summarize the time- course for resolution of acute symptoms and/or regressed behaviors. 3. Describe issues identified and worked on during hospitalization. 4. Describe medication utilized. 5. Describe medical problems identified and treated. 6. Reassessment of suicide risk Summary of Hospital Course: Patient was admitted to psychiatry. Individual and group therapy were provided. Patient was stabilized on Lexapro 10 mg PO Daily. He reports improvement in mood. Psychoeducation provided on the importance of alcohol cessation and compliance with treatment and medications. - Diagnosis (1) Major depressive disorder Current Visit: Yes Status: Chronic (2) Anxiety Current Visit: Yes Status: Chronic (3) Alcohol abuse Current Visit: No Status: Chronic - Final Diagnosis (DSM 5) Condition upon Discharge: STABLE DSM 5: Depressive Disorder; Alcohol Use Disorder; Anxiety Disorder Disposition: HOME/ ROUTINE Follow-up Treatment Plan: Depressive Disorder; Alcohol Use Disorder; Anxiety Disorder -Continue Lexapro 10 mg PO Daily -Discharge with outpatient follow-up Prescriptions/Medication Reconciliation: Escitalopram [Lexapro] 10 mg PO DAILY #30 tab - Smoking Cessation Smoking Cessation Medication prescribed: No Reason for not providing: Patient declined - Antipsychotic Medications Pt discharged on 2 or more routine antipsychotic medications: No
[2017-12-31] MEDS: Multivitamin With Minerals Tab PO SCH (08:50)
== END 2017-12-31 13:40 | disposition home or self-care (01) | DRG 426 ==
LOC: H.ER 06:01 → H.ERHOLD 09:48 → H.STEP 13:05
PROVIDERS: ADMIT Psychiatry & Neurology Psychiatry; ATTEND Psychiatry & Neurology Psychiatry
PROC: GZHZZZZ Group Psychotherapy (ICD-10-PCS; principal; 2017-12-26)
PROC: GZ58ZZZ Individual Psychotherapy, Cognitive-Behavioral (ICD-10-PCS; 2017-12-26)
DX: F32.9 Major depressive disorder, single episode, unspecified (principal); R45.851 Suicidal ideations; E87.6 Hypokalemia; F10.10 Alcohol abuse, uncomplicated; F41.0 Panic disorder [episodic paroxysmal anxiety]; E11.9 Type 2 diabetes mellitus without complications; I10 Essential (primary) hypertension; R51 Headache; Z91.19 Patient's noncompliance with other medical treatment and regimen; F17.210 Nicotine dependence, cigarettes, uncomplicated; Y90.0 Blood alcohol level of less than 20 mg/100 ml; Z59.0 Homelessness

== ENCOUNTER 2018-04-12 14:27 | Emergency (ER) | payer MEDICAID, MEDICARE ==
[2018-04-12 14:27] VITALS: BMI 36.6
[2018-04-12 14:54] VITALS: TEMP 98.9
[2018-04-12] MEDS ORDERED: Piperacillin/Tazobact 4.5 GM in Sodium Chloride 0.9% 100 ML IVPB STA (15:08)
[2018-04-12] MEDS ORDERED: Lidocaine 1% Inj (20ml) IJ ONE (15:20)
[2018-04-12] MEDS ORDERED: Lidocaine 1% Inj (20ml) ONE (15:32)
[2018-04-12 15:50] LABS: BASO # 0.1 K/uL (0.0-0.2); BASO % 0.7 % (0.0-2.0); EOS # 0.1 K/uL (0.0-0.7); EOS % 1.5 % (0.0-4.0); HEMOGLOBIN 13.8 g/dL (12.0-18.0); LYMPH # 1.8 K/uL (1.0-4.3); MEAN CELL VOLUME 93.8 fl (80.0-94.0); MEAN CORPUSCULAR HGB CONC 34.1 g/dL (33.0-37.0); MEAN PLATELET VOLUME 6.9 fl (7.2-11.7); MONO # 0.7 K/uL (0.0-0.8); MONO % 7.1 % (0.0-10.0); NEUT # 6.6 K/uL (1.8-7.0); NEUT % 71.7 % (50.0-75.0); NRBC % 0.1 % (0.0-0.0); RBC 4.3 Mil/uL (4.40-5.90); RED CELL DISTRIBUTION WIDTH 13.7 % (11.5-14.5); WHITE BLOOD COUNT 9.3 K/uL (4.8-10.8)
--- NOTE | 2018-04-12 16:05 | ED PDOC ---
HPI: Skin/Bite Injury Time Seen by Provider: 04/12/18 14:58 Chief Complaint (Nursing): Abnormal Skin Integrity History Per: Patient History/Exam Limitations: no limitations Onset/Duration Of Symptoms: Days ( 7) Current Symptoms Are (Timing): Still Present Additional Complaint(s): 47-YEAR-OLD male, with a past medical history of Type 2 diabetes, presents with pain, swelling and redness to right proximal forearm. Pt states symptoms started 7 days ago after visit to [place]. Pt believes he was bitten by unknown insect. Since then, pain and swelling progressed over the last few days. Noticed drainage in the area. Denies fever, malise, weakness, headache, cough, abdominal pain, joint pain, previous skin infection. Reports he is on metformin, but poorly complaint. States sugar has been okay. PMD: TBD Past Medical History Reviewed: Historical Data, Nursing Documentation, Vital Signs Vital Signs: Last Vital Signs Temp 98.9 F 04/12/18 14:51 Pulse 90 04/12/18 14:51 Resp 18 04/12/18 14:51 BP 161/91 H 04/12/18 14:51 Pulse Ox 98 04/12/18 17:03 - Medical History PMH: Anxiety ([facility]-2017), Back Problems (broken neck), Bipolar Disorder, Depression ([facility]-2017), Diabetes (Pt reported hx), HTN ("alcohol-induced") Denies: Hepatitis (Patient denied), HIV (Patient denied), Chronic Kidney Disease, Seizures (Patient denied), Sexually Transmitted Disease (Patient denied ) - Surgical History Surgical History: Hernia Repair - Family History Family History: States: Unknown Family Hx - Immunization History Hx Tetanus Toxoid Vaccination: No Hx Influenza Vaccination: No Hx Pneumococcal Vaccination: No - Home Medications Home Medications: Ambulatory Orders Medication Instructions Recorded Escitalopram [Lexapro] 10 mg PO DAILY #30 tab 12/30/17 Folic Acid 1 mg PO DAILY tab 12/31/17 Multimineral/Multivitamin 1 tab PO DAILY tab 12/31/17 [Therapeutic-M Tab] Thiamine [Vitamin B1 Tab] 100 mg PO DAILY tab 12/31/17 Comp.stocking,Knee,Long,X-Lrg 2 each MC ONCE #2 each 02/20/18 [Activa Men's Dress Sock] Clindamycin [Cleocin] 300 mg PO TID #21 cap 04/12/18 Naproxen [Naprosyn] 500 mg PO BID PRN #14 tablet 04/12/18 - Allergies Allergies/Adverse Reactions: Allergies Allergy/AdvReac Type Severity Reaction Status Date / Time No Known Allergies Allergy Verified 04/12/18 14:51 Review of Systems ROS Statement: Except As Marked, All Systems Reviewed And Found Negative Constitutional: Negative for: Fever, Weakness, Malaise Respiratory: Negative for: Cough Gastrointestinal: Negative for: Abdominal Pain Musculoskeletal: Negative for: Other (joint pain) Neurological: Negative for: Headache Physical Exam - Reviewed Nursing Documentation Reviewed: Yes Vital Signs Reviewed: Yes - Physical Exam Skin: Negative for: Normal Color ((+) right proximal forearm laterally has proximally 8 cm of erythema induration with central draining ulcer/abscess.) Extremity: Positive for: Other (Hand and shoulder unmarkable) - Laboratory Results Result Diagrams: 04/12/18 15:44 04/12/18 15:44 - ECG O2 Sat by Pulse Oximetry: 98 (RA) Pulse Ox Interpretation: Normal Medical Decision Making Medical Decision Making: Time: 15:08 Impression(s): Given proximally to joint, initiate Vancomycin. Wound culture was obtained with freshly expressed pustuate material. Attempt IVPB. Plan: - CMP - CBC (with differentials) - Lidocaine 1% (20ml) 5 ml IJ - Vancomycin Inj 1 gm Sodium Chloride 0.9% 250 ml IVPB - Zosyn 4.5 gm Sodium Chloride 0.9% 100 ml IVPB labs reviewed WBC normal mild hyperglycemia Procedure note I&D abscess R prox forearm verbal consent obtained betadine rinse lidocaine 2% 4ml infiltrated for local anesthesia 10blade small t shaped incision made over area of previous drainage and fluctuance additional pustulent material drained, probed superficially and irrigated sterile saline packed w sterile packing material margins of erythema marked w sterile surgical pen for wound check wound dressed w sterile gauze, bacitracin would cultures obtained prior to Abx initiation wound care explained in detail and questions answered followup clinic/ PMD 24-36hrs for wound check, wound cx results pending Rx clinda 300mg TID ~~~~~~~~~~~~~~~~~~~~~~~~~~~~~~~~~~~~~~~~~~~~~~~~~~~~~~~~~~~~~~~~~~~~~~~~~~~~~~~~ ~~~~~~~~~~~~~~ Scribe Attestation: Documented by Noah Camacho, acting as a scribe for Tyrone Karimi III, DO. Provider Scribe Attestation: All medical record entries made by the Scribe were at my direction and personally dictated by me. I have reviewed the chart and agree that the record accurately reflects my personal performance of the history, physical exam, medical decision making, and the department course for this patient. I have also personally directed, reviewed, and agree with the discharge instructions and disposition. Disposition - Clinical Impression Clinical Impression: Arm abscess - Patient ED Disposition Is Patient to be Admitted: No - Disposition Disposition: Routine/Home Disposition Time: 17:01 Condition: STABLE Prescriptions: Clindamycin [Cleocin] 300 mg PO TID #21 cap Naproxen [Naprosyn] 500 mg PO BID PRN #14 tablet PRN Reason: Pain, Moderate (4-7) Forms: [facility] (Tristanian)
[2018-04-12 16:08] LABS: ALB/GLOB RATIO 1.2 (1.0-2.1); ALBUMIN 3.8 g/dL (3.5-5.0); ALT/SGPT 58 U/L (21-72); AST/SGOT 46 U/L (17-59); BLOOD UREA NITROGEN 13 mg/dl (9-20); CALCIUM 8.4 mg/dL (8.4-10.2); GFR AFRICAN-AMERICAN > 60; GFR NON-AFRICAN AMERICAN > 60
[2018-04-12 19:30] VITALS: BP 131/90; PULSE 78; RESP 20; O2SAT 97
== END 2018-04-12 19:29 | disposition home or self-care (01) ==
LOC: H.ER 14:27
DX: L02.413 Cutaneous abscess of right upper limb (principal); E11.65 Type 2 diabetes mellitus with hyperglycemia; Z86.59 Personal history of other mental and behavioral disorders; I10 Essential (primary) hypertension
CPT/HCPCS: 10060; 80053; 85025; 87070; 87181; 96365; 96367; 99283; J2543

== ENCOUNTER 2018-04-14 15:07 | Emergency (ER) | payer MEDICARE, MEDICAID ==
[2018-04-14 15:08] VITALS: BMI 36.6
[2018-04-14 15:14] VITALS: BP 156/84; PULSE 72; RESP 16; TEMP 98.2; O2SAT 100
--- NOTE | 2018-04-14 16:00 | ED PDOC ---
HPI: Wound Care - HPI Time Seen by Provider: 04/14/18 15:43 Chief Complaint (Nursing): Wound Check Chief Complaint (Provider): Wound check History Per: Patient Exam Limitations: no limitations Onset/Duration Of Symptoms: Days (x3 days) Current Symptoms Are (Timing): Still Present Location Of Injury: Right: Arm (abscess) Additional Complaint(s): 47 y/o male presents to the ED for wound check. Patient was seen here at this ER 3 days ago for a bug bit to his right forearm. Due to the bug bite patient states it turned into an abscess. He was sent home with antibiotics Naproxen and Clindamycin. He was also sent home with Bacitracin for dressing change and used triple antibiotic ointment at home. Patient reports the wound was packed but believes he accidentally removed it when he changed his bandage. He is here requesting wound check. PMD: none provided Past Medical History Reviewed: Historical Data, Nursing Documentation, Vital Signs Vital Signs: Last Vital Signs Temp 98.2 F 04/14/18 15:12 Pulse 72 04/14/18 15:12 Resp 16 04/14/18 15:12 BP 156/84 H 04/14/18 15:12 Pulse Ox 100 04/14/18 15:12 - Medical History PMH: Anxiety ([facility]-2017), Back Problems (broken neck), Bipolar Disorder, Depression ([facility]-2017), Diabetes (Pt reported hx), HTN ("alcohol-induced") Denies: Hepatitis (Patient denied), HIV (Patient denied), Chronic Kidney Disease, Seizures (Patient denied), Sexually Transmitted Disease (Patient denied ) - Surgical History Surgical History: Hernia Repair - Family History Family History: States: Unknown Family Hx - Immunization History Hx Tetanus Toxoid Vaccination: No Hx Influenza Vaccination: No Hx Pneumococcal Vaccination: No - Home Medications Home Medications: Ambulatory Orders Medication Instructions Recorded Escitalopram [Lexapro] 10 mg PO DAILY #30 tab 12/30/17 Folic Acid 1 mg PO DAILY tab 12/31/17 Multimineral/Multivitamin 1 tab PO DAILY tab 12/31/17 [Therapeutic-M Tab] Thiamine [Vitamin B1 Tab] 100 mg PO DAILY tab 12/31/17 Comp.stocking,Knee,Long,X-Lrg 2 each MC ONCE #2 each 02/20/18 [Activa Men's Dress Sock] Clindamycin [Cleocin] 300 mg PO TID #21 cap 04/12/18 Naproxen [Naprosyn] 500 mg PO BID PRN #14 tablet 04/12/18 - Allergies Allergies/Adverse Reactions: Allergies Allergy/AdvReac Type Severity Reaction Status Date / Time No Known Allergies Allergy Verified 04/12/18 14:51 Review of Systems ROS Statement: Except As Marked, All Systems Reviewed And Found Negative Constitutional: Negative for: Fever Skin: Positive for: Other (wound check and packing removal to an abscess located on the right forearm) Physical Exam - Reviewed Nursing Documentation Reviewed: Yes Vital Signs Reviewed: Yes - Physical Exam Appears: Positive for: Well, Non-toxic, No Acute Distress Head Exam: Positive for: ATRAUMATIC, NORMOCEPHALIC Skin: Negative for: Normal Color (wound check to the right elbow posterior side , open wound with no cellulitis, no duration, no erythema, wound has mild discharge, no packing found) Eye Exam: Positive for: EOMI, Normal appearance, PERRL Cardiovascular/Chest: Positive for: Regular Rate, Rhythm. Negative for: Murmur Respiratory: Positive for: Normal Breath Sounds. Negative for: Respiratory Distress Extremity: Positive for: Normal ROM (right arm) Neurologic/Psych: Positive for: Alert, Oriented (x3) - ECG O2 Sat by Pulse Oximetry: 100 (RA) Pulse Ox Interpretation: Normal Medical Decision Making Medical Decision Making: Time: 15:12 Impression: Healing abscess and cellulitis Plan: * wound care * referral to wound clinic Scribe Attestation: Documented by Sun Castanon acting as a scribe Savita Riley PA-C. MD Scribe Attestation: All medical record entries made by the Scribe were at my direction and personally dictated by me. I have reviewed the chart and agree that the record accurately reflects my personal performance of the history, physical exam, medical decision making, and the department course for this patient. I have also personally directed, reviewed, and agree with the discharge instructions and disposition. Disposition - Clinical Impression Clinical Impression: Encounter for wound re-check Doctor Will See Patient In The: Office Counseled Patient/Family Regarding: Diagnosis, Need For Followup, Rx Given - Disposition [facility]: [facility] [Outside] Disposition Time: 16:20 Condition: STABLE Instructions: Wound Care (DC), Wound Care, Wound Incision and Drainage (DC) Forms: [employer] ([place])
== END 2018-04-14 16:20 | disposition home or self-care (01) ==
LOC: H.ER 15:07
DX: Z48.00 Encounter for change or removal of nonsurgical wound dressing (principal); L02.413 Cutaneous abscess of right upper limb; E11.9 Type 2 diabetes mellitus without complications; F31.9 Bipolar disorder, unspecified; F41.9 Anxiety disorder, unspecified; I10 Essential (primary) hypertension

== ENCOUNTER 2018-10-29 16:28 | Emergency (ER) | payer MEDICAID, MEDICARE ==
[2018-10-29 16:28] VITALS: BMI 36.6
[2018-10-29 16:35] VITALS: TEMP 96.6; O2SAT 94
--- NOTE | 2018-10-29 17:56 | ED PDOC ---
HPI: Altered Mental Status Time Seen by Provider: 10/29/18 17:09 Chief Complaint (Nursing): Alcohol Ingestion Chief Complaint (Provider): Altered Mental Status History Per: Patient History/Exam Limitations: Intoxication Onset/Duration Of Symptoms: Hrs Current Symptoms Are (Timing): Still Present Associated Symptoms: Confused Additional Complaint(s): 47 year old male was brought to the ED via EMS for AMS. Patient was found at the train station carrying a large suitcase who states he was getting on the train to visit his brother. He is heavily intoxicated and he does not know the address or where his brother lives. In the hospital, patient is confused and states he is looking for his brother here. Otherwise, patient denies discomfort, drugs or HI/SI. PMD: no family provider Past Medical History Reviewed: Historical Data, Nursing Documentation, Vital Signs Vital Signs: Last Vital Signs Temp 96.6 F L 10/29/18 16:35 Pulse 96 H 10/29/18 16:35 Resp 16 10/29/18 16:35 BP 157/83 H 10/29/18 16:35 Pulse Ox 94 L 10/29/18 16:35 - Medical History PMH: Anxiety ([facility]-2017), Back Problems (broken neck), Bipolar Disorder, Depression ([facility]-2017), Diabetes (Pt reported hx), HTN ("alcohol-induced") Denies: Hepatitis (Patient denied), HIV (Patient denied), Chronic Kidney Disease, Seizures (Patient denied), Sexually Transmitted Disease (Patient denied) - Surgical History Surgical History: Hernia Repair - Family History Family History: States: Unknown Family Hx - Social History Alcohol: > 2 Drinks/Day Drugs: Denies - Immunization History Hx Tetanus Toxoid Vaccination: No Hx Influenza Vaccination: No Hx Pneumococcal Vaccination: No - Home Medications Home Medications: Ambulatory Orders Medication Instructions Recorded RX: Escitalopram [Lexapro] 10 mg PO DAILY #30 tab 12/30/17 RX: Folic Acid 1 mg PO DAILY tab 12/31/17 RX: Multimineral/Multivitamin 1 tab PO DAILY tab 12/31/17 [Therapeutic-M Tab] RX: Thiamine [Vitamin B1 Tab] 100 mg PO DAILY tab 12/31/17 RX: Compr.stocking,Knee,Long,X-Lrg 2 each MC ONCE #2 each 02/20/18 [Activa Men's Dress Sock] Naproxen [Naprosyn] 500 mg PO BID PRN #14 tablet 04/12/18 RX: Clindamycin [Cleocin] 300 mg PO TID #21 cap 04/12/18 - Allergies Allergies/Adverse Reactions: Allergies Allergy/AdvReac Type Severity Reaction Status Date / Time No Known Allergies Allergy Verified 10/29/18 16:33 Review of Systems Review Of Systems: ROS cannot be obtained secondary to pt's inabilty to answer questions. (disortiented to place and time) Physical Exam - Reviewed Nursing Documentation Reviewed: Yes Vital Signs Reviewed: Yes - Physical Exam Appears: Positive for: Non-toxic Head Exam: Positive for: ATRAUMATIC, NORMAL INSPECTION, NORMOCEPHALIC Skin: Positive for: Normal Color, Warm, Dry. Negative for: Rash Eye Exam: Positive for: EOMI, Normal appearance, PERRL ENT: Positive for: Normal ENT Inspection Neck: Positive for: Normal, Painless ROM Cardiovascular/Chest: Positive for: Regular Rate, Rhythm. Negative for: Murmur Respiratory: Positive for: Normal Breath Sounds. Negative for: Decreased Breath Sounds, Wheezing, Respiratory Distress Gastrointestinal/Abdominal: Positive for: Normal Exam, Soft. Negative for: Tenderness, Guarding, Rebound Back: Positive for: Normal Inspection Extremity: Positive for: Normal ROM. Negative for: Tenderness, Pedal Edema, Deformity Neurologic/Psych: Positive for: hyperbaric technologist II-XII (intact), Oriented (1x to self), Gait (unsteady with ambulation), Other (Slurred speech, no trauma or infection) - Laboratory Results Result Diagrams: 10/29/18 18:04 10/29/18 18:04 - ECG O2 Sat by Pulse Oximetry: 94 (RA) Pulse Ox Interpretation: Normal Medical Decision Making Medical Decision Making: Time: 1714 A/P: intoxicated state causing AMS. Will order basic labs for Etoh, observation and will obtain further labs if Etoh is not detected Alcohol serum BMP CBC w/ Differential Reevaluation Time: 1899 Patient signed out to Dr. Molina pending sobriety and chest x-ray. Scribe Attestation: Documented by Erica Curz, acting as a scribe for Elysia Key MD. Provider Scribe Attestation: All medical record entries made by the Scribe were at my direction and personally dictated by me. I have reviewed the chart and agree that the record accurately reflects my personal performance of the history, physical exam, medical decision making, and the department course for this patient. I have also personally directed, reviewed, and agree with the discharge instructions and disposition. Disposition - Clinical Impression Clinical Impression: Alcohol intoxication - Disposition Referrals: [facility] [Outside] [facility] [Outside] Disposition: Transfer of Care Disposition Time: 19:00 Condition: IMPROVED Additional Instructions: follow up as outpatient return to the ED with any worsening or concerning symptoms Instructions: Alcohol Use - When Is Drinking a Problem? Forms: [employer] (Arabic) Patient Signed Over To: Courtney Molina Handoff Comments: pending sobriety and CXR
[2018-10-29 18:07] LABS: BASO # 0.1 K/uL (0.0-0.2); BASO % 1.2 % (0.0-2.0); EOS # 0.2 K/uL (0.0-0.7); EOS % 2.3 % (0.0-4.0); HEMOGLOBIN 15.4 g/dL (12.0-18.0); LYMPH # 4.4 K/uL (1.0-4.3); LYMPH % 51.7 % (20.0-40.0); MEAN CELL VOLUME 91.8 fl (80.0-94.0); MEAN CORPUSCULAR HEMOGLOBIN 30.8 pg (27.0-31.0); MEAN CORPUSCULAR HGB CONC 33.6 g/dL (33.0-37.0); MEAN PLATELET VOLUME 7.4 fl (7.2-11.7); MONO # 0.6 K/uL (0.0-0.8); MONO % 6.5 % (0.0-10.0); NEUT # 3.3 K/uL (1.8-7.0); NEUT % 38.3 % (50.0-75.0); NRBC % 0.1 % (0.0-0.0); RED CELL DISTRIBUTION WIDTH 13.4 % (11.5-14.5); WHITE BLOOD COUNT 8.6 K/uL (4.8-10.8)
[2018-10-29 18:21] LABS: BLOOD UREA NITROGEN 13 mg/dl (9-20); CALCIUM 8.9 mg/dL (8.4-10.2); GFR NON-AFRICAN AMERICAN > 60
--- NOTE | 2018-10-29 19:38 | ED PDOC ---
- Laboratory Results Result Diagrams: 10/29/18 18:04 10/29/18 18:04 - ECG O2 Sat by Pulse Oximetry: 94 (RA) Pulse Ox Interpretation: Normal Medical Decision Making Medical Decision Making: Time: 1899 Patient endorsed to provider by Dr. Key, pending sobriety and chest x-ray Time: 2224 EXAM: CR Chest, 1 View. CLINICAL HISTORY: Cough COMPARISON: None provided. FINDINGS: LUNGS: There are diffusely increased interstitial lung markings consistent with bronchitis, acute versus chronic. PLEURAL SPACES: No pleural effusion or pneumothorax. MEDIASTINUM: The cardiomediastinal silhouette is within normal limits. BONES: No acute osseous abnormality. IMPRESSION: There are diffusely increased interstitial lung markings consistent with bronchitis, acute versus chronic. pt sober, awake and alert, stable vitals. ambulating w steady gait. pt denies chest pain or shortness of breath. Vitals as per RN crystal: 123/78 92 resp 14 oxygen 95 RA temp 98 Scribe Attestation: Documented by Erica Cruz, acting as a scribe for Tracy Valdez MD. Provider Scribe Attestation: All medical record entries made by the Scribe were at my direction and personally dictated by me. I have reviewed the chart and agree that the record accurately reflects my personal performance of the history, physical exam, medical decision making, and the department course for this patient. I have also personally directed, reviewed, and agree with the discharge instructions and disposition. Disposition - Clinical Impression Clinical Impression: Alcohol intoxication - POA Present On Arrival: None - Disposition Referrals: [facility] [Outside] [facility] [Outside] Disposition: Routine/Home Disposition Time: 04:40 Condition: IMPROVED Additional Instructions: follow up as outpatient return to the ED with any worsening or concerning symptoms Instructions: Alcohol Use - When Is Drinking a Problem? Forms: [employer] (Thai)
[2018-10-30 05:08] VITALS: BP 123/78; PULSE 92; RESP 14
--- NOTE | 2018-10-30 08:32 | RAD ---
Date of service: 10/29/2018 HISTORY: possible admission COMPARISON: 12/26/2017 FINDINGS: LUNGS: The lungs are well inflated and clear. PLEURA: No pleural effusions or pneumothorax. CARDIOVASCULAR: The heart is normal in size. No aortic atherosclerotic calcification present. OSSEOUS STRUCTURES: Within normal limits for the patient's age. VISUALIZED UPPER ABDOMEN: Normal. OTHER FINDINGS: None. IMPRESSION: No active pulmonary disease.
== END 2018-10-29 22:55 | disposition home or self-care (01) ==
LOC: H.ER 16:28
DX: F10.129 Alcohol abuse with intoxication, unspecified (principal); Y90.8 Blood alcohol level of 240 mg/100 ml or more; E11.9 Type 2 diabetes mellitus without complications; I10 Essential (primary) hypertension; Z86.59 Personal history of other mental and behavioral disorders